=== PATIENT | male | born 1980 | race Caucasian/White ===

== ENCOUNTER 2018-04-20 10:44 | Emergency (ER) | payer BC, OTHER ==
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
== END 2018-04-20 11:27 | disposition home or self-care (01) ==
LOC: JD.ED 10:44
DX: N45.3 Epididymo-orchitis (principal); Z88.6 Allergy status to analgesic agent; Z79.899 Other long term (current) drug therapy
CPT/HCPCS: 99283